=== PATIENT | female | born 1960 | race Caucasian/White ===

== ENCOUNTER 2016-09-18 10:51 | Observation (INO) | payer BC ==
[2016-09-18] VITALS (8 sets, daily range): BP systolic 97–122; BP diastolic 59–87
[~2016-09-18] VITALS: Ht 154.9 cm; Wt 97.6 kg
[2016-09-18 11:56] LABS: EOSINOPHIL (%) 0.5 % (0-5); EOSINOPHIL COUNT 0.1 K/uL (0-0.3); HEMATOCRIT 39.8 % (36.0-46.0); IMMATURE GRANULOCYTE (%) 0.6 % (0.0-0.7); IMMATURE GRANULOCYTE COUNT 0.1 K/uL; INSTRUMENT ABS NEUTROPHIL CT 9.7 K/uL; LYMPHOCYTE COUNT 2.6 K/uL (1.0-2.8); MCH 30.4 PG (29.0-34.0); MCHC 32.9 G/DL (30.0-36.0); MCV 92.3 FL (83-99); MEAN PLAT.VOLUME 10.4 uM^3 (9.5-12.4); MONOCYTE (%) 7.9 % (3-12); MONOCYTE COUNT 1.1 K/uL (0-0.8); NEUTROPHIL (%) 71.4 % (45-76); NEUTROPHIL COUNT 9.7 K/uL (1.8-6.4); PLATELET COUNT 352 K/uL (156-360); RBC DIS.WIDTH-CV 13.6 % (11.8-14.6); RBC DIS.WIDTH-SD 46.5 % (39-53); RED BLOOD COUNT 4.31 M/uL (3.80-5.20); WHITE BLOOD COUNT 13.6 K/uL (4.1-10.2)
[2016-09-18 12:23] LABS: TROP-I INTERPRETATION NEGATIVE; TROPONIN-I < 0.01 ng/mL (0.0-0.30)
[2016-09-18 13:06] LABS: ANION GAP 14 MEQ/L (2-14); CHLORIDE 102 MEQ/L (99-109); POTASSIUM 4.3 MEQ/L (3.7-5.4); SAMPLE HEMOLYSIS CHECK 0; SAMPLE ICTERIC CHECK 0; SAMPLE LIPEMIA CHECK 0; SODIUM 134 MEQ/L (136-147)
[2016-09-18 13:12] LABS: GFR ESTIMATE (CALCULATED) 50 mL/min/; GLUCOSE 287 mg/dL (70-99); UREA NITROGEN (BUN) 21 mg/dL (9-23)
[2016-09-18] MEDS ORDERED: FARXIGA10 MG PO (14:14)
[2016-09-18] MEDS ORDERED: LEVEMIR FL100 UNIT/1 SC (14:14)
[2016-09-18] MEDS ORDERED: XANAX0.25 MG PO (14:16)
[2016-09-18] MEDS ORDERED: VASOTEC10 MG PO (14:16)
[2016-09-18] MEDS ORDERED: XARELTO20 MG PO (14:16)
[2016-09-18] MEDS ORDERED: NEURONTIN300 MG PO (14:16)
[2016-09-18] MEDS ORDERED: LOPID600 MG PO (14:17)
[2016-09-18] MEDS ORDERED: LOPRESSOR50 MG PO (14:17)
[2016-09-18] MEDS ORDERED: MULTAQ400 MG PO (14:18)
[2016-09-18 14:42] LABS: INTER. NORMALIZED RATIO 1.3; PROTHROMBIN TIME 13.6 (9.2-11.2); PTT 41.9 (25-32)
[2016-09-18 20:54] LABS: POINT-OF-CARE METER ID UU13113781
[2016-09-19 05:16] VITALS: BP 99/52
[2016-09-19 07:24] VITALS: BP 104/57
[2016-09-19 07:29] LABS: HEMATOCRIT 35.2 % (36.0-46.0); MCHC 32.7 G/DL (30.0-36.0); MCV 94.9 FL (83-99); MEAN PLAT.VOLUME 10.7 uM^3 (9.5-12.4); PLATELET COUNT 320 K/uL (156-360); RBC DIS.WIDTH-CV 13.9 % (11.8-14.6); RBC DIS.WIDTH-SD 47.8 % (39-53); RED BLOOD COUNT 3.71 M/uL (3.80-5.20); WHITE BLOOD COUNT 11.7 K/uL (4.1-10.2)
[2016-09-19 07:36] LABS: INTER. NORMALIZED RATIO 1.4; PROTHROMBIN TIME 14.5 (9.2-11.2)
[2016-09-19 07:47] LABS: POINT-OF-CARE USER ID NUTSLF44
[2016-09-19 08:02] LABS: ALKALINE PHOSPHATASE 43 IU/L (3-129); ANION GAP 11 MEQ/L (2-14); CHLORIDE 105 MEQ/L (99-109); GFR ESTIMATE (CALCULATED) 55 mL/min/; POTASSIUM 4.1 MEQ/L (3.7-5.4); SAMPLE HEMOLYSIS CHECK 0; SAMPLE ICTERIC CHECK 0; SAMPLE LIPEMIA CHECK 0; SODIUM 137 MEQ/L (136-147); TOTAL BILIRUBIN 0.7 MG/DL (0.0-1.0); UREA NITROGEN (BUN) 22 mg/dL (9-23)
[2016-09-19 08:07] LABS: GLUCOSE 124 mg/dL (70-99)
[2016-09-19] MEDS ORDERED: SOTALOL80 MG PO (11:03)
[2016-09-19 11:35] LABS: POINT-OF-CARE METER ID UU13113781; POINT-OF-CARE USER ID NUTSLF44
== END 2016-09-19 12:09 | disposition home or self-care (01) ==
LOC: EME 10:51 → 4EAST 14:07 → EDOF 14:07 → 4EAST 14:07
PROVIDERS: Emergency Medicine; Internal Medicine
DX: I48.0 Paroxysmal atrial fibrillation (principal); E11.9 Type 2 diabetes mellitus without complications; I35.0 Nonrheumatic aortic (valve) stenosis; I10 Essential (primary) hypertension; D72.829 Elevated white blood cell count, unspecified; E66.9 Obesity, unspecified; Z79.4 Long term (current) use of insulin; Z79.01 Long term (current) use of anticoagulants
CPT/HCPCS: 71010; 80048; 80053; 81003; 82948; 84443; 84484; 85025; 85027; 85610; 85730; 93005; 99281; 99285; G0378; J7030; J7050